=== PATIENT | male | born 1970 | race Caucasian/White ===

== ENCOUNTER 2021-08-29 07:02 | Day surgery (SDC) | payer OTHER, SELFPAY ==
[~2021-08-29] VITALS: Ht 172.7 cm; Wt 88.5 kg
[2021-08-29] MEDS ORDERED: fentaNYL citrate 0.05 MG/ML VIAL ONE (07:44)
[2021-08-29] MEDS ORDERED: MIDAZOLAM 5 MG/5 ML VIAL ONE (07:44)
[2021-08-29] MEDS ORDERED: diphenhydrAMINE 50 MG/ML VIAL ONE (07:44)
[2021-08-29] MEDS ORDERED: LIDOCAINE 2% 100 MG/5 ML UJET TP ONE (07:45)
[2021-08-29] MEDS ORDERED: MIDAZOLAM 2 MG/2 ML VIAL IVP ONE (12:35)
[2021-08-29] MEDS ORDERED: fentaNYL citrate 0.05 MG/ML VIAL IVP ONE (12:35)
== END 2021-08-29 08:45 | disposition home or self-care (01) ==
LOC: MDS 07:02 → MFCC 07:02 → MDS 08:45
PROVIDERS: ATTEND Internal Medicine Gastroenterology
DX: Z12.11 Encounter for screening for malignant neoplasm of colon (principal); K63.5 Polyp of colon; K21.9 Gastro-esophageal reflux disease without esophagitis; Z80.0 Family history of malignant neoplasm of digestive organs; Z79.899 Other long term (current) drug therapy
CPT/HCPCS: 45385; 87426; 88305; J2250; J3010; J1200

== ENCOUNTER 2023-11-21 07:13 | Day surgery (SDC) | payer OTHER ==
[~2023-11-21] VITALS: Ht 170.2 cm; Wt 88.5 kg
[2023-11-21] MEDS ORDERED: fentaNYL citrate 0.05 MG/ML VIAL ONE (08:08)
[2023-11-21] MEDS ORDERED: MIDAZOLAM 2 MG/2 ML VIAL ONE (08:09)
[2023-11-21] MEDS ORDERED: LIDOCAINE 2% 100 MG/5 ML UJET TP ONE ×2 (08:09→13:35)
[2023-11-21] MEDS ORDERED: MIDAZOLAM 2 MG/2 ML VIAL IVP ONE (13:35)
[2023-11-21] MEDS ORDERED: fentaNYL citrate 0.05 MG/ML VIAL IVP ONE (13:35)
== END 2023-11-21 09:45 | disposition home or self-care (01) ==
LOC: MDS 07:13 → MMU 07:17 → MDS 09:45
PROVIDERS: ATTEND Internal Medicine Gastroenterology
DX: R10.32 Left lower quadrant pain (principal); K21.00 Gastro-esophageal reflux disease with esophagitis, without bleeding; I85.00 Esophageal varices without bleeding; K22.10 Ulcer of esophagus without bleeding; K44.9 Diaphragmatic hernia without obstruction or gangrene; R14.0 Abdominal distension (gaseous)
CPT/HCPCS: 43235; 45378; J2250; J3010

== ENCOUNTER 2024-02-20 06:33 | Day surgery (SDC) | payer OTHER ==
[~2024-02-20] VITALS: Ht 170.2 cm; Wt 88.0 kg
[2024-02-20] MEDS ORDERED: fentaNYL citrate 0.05 MG/ML VIAL ONE (08:01)
[2024-02-20] MEDS ORDERED: MIDAZOLAM 5 MG/5 ML VIAL ONE (08:01)
[2024-02-20] MEDS: MIDAZOLAM 2 MG/2 ML VIAL IVP ONE (09:00)
== END 2024-02-20 10:10 | disposition home or self-care (01) ==
LOC: MOR 06:33 → MMU 06:34 → MOR 10:02
PROVIDERS: ATTEND Internal Medicine Gastroenterology
DX: K22.70 Barrett's esophagus without dysplasia (principal); K44.9 Diaphragmatic hernia without obstruction or gangrene; Z79.899 Other long term (current) drug therapy; Z98.890 Other specified postprocedural states
CPT/HCPCS: 36415; 43239; 86677; 88305; 88313; J2250; J3010